=== PATIENT | male | born 1970 | race Asian ===

== ENCOUNTER 2021-06-07 10:54 | Day surgery (SDC) | payer OTHER ==
[2021-06-07] MEDS ORDERED: diphenhydrAMINE 50 MG/ML VIAL ONE (11:56)
[2021-06-07] MEDS ORDERED: fentaNYL citrate 0.05 MG/ML VIAL ONE (11:56)
[2021-06-07] MEDS ORDERED: MIDAZOLAM 5 MG/5 ML VIAL ONE (11:57)
[2021-06-07] MEDS ORDERED: MIDAZOLAM 2 MG/2 ML VIAL IVP ONE ×2 (12:25→12:45)
[2021-06-07] MEDS ORDERED: fentaNYL citrate 0.05 MG/ML VIAL IVP ONE (12:25)
== END 2021-06-07 13:35 | disposition home or self-care (01) ==
LOC: MDS 10:54 → MMU 11:26 → MDS 13:35
PROVIDERS: ATTEND Internal Medicine Gastroenterology
DX: Z12.11 Encounter for screening for malignant neoplasm of colon (principal); D12.5 Benign neoplasm of sigmoid colon; K25.9 Gastric ulcer, unspecified as acute or chronic, without hemorrhage or perforation; Z86.010 Personal history of colon polyps; Z79.899 Other long term (current) drug therapy
CPT/HCPCS: 43235; 45385; J2250; J3010; J1200